=== PATIENT | female | born 1955 | race Caucasian/White ===

== ENCOUNTER 2019-12-30 14:25 | Outpatient (CLI) | payer OTHER ==
[2019-12-30 20:36] LABS: CALCIUM 9.3 mg/dL (8.5-10.3); CREATININE 0.8 mg/dL (0.4-1.0)
[2019-12-31 09:32] LABS: THYROID STIMULATING HORMONE 2.29 uIU/mL (0.34-5.60)
[2019-12-31 09:34] LABS: FREE T3 2.71 pg/mL (2.5-3.9); FREE T4 (FREE THYROXINE) 0.74 ng/dL (0.58-1.64)
== END 2019-12-30 14:26 | disposition home or self-care (01) ==
LOC: LAB.S 14:25
PROVIDERS: ATTEND Internal Medicine
DX: I10 Essential (primary) hypertension (principal); E88.81 Metabolic syndrome and other insulin resistance
CPT/HCPCS: 36415; 80048; 84439; 84443; 84481